=== PATIENT | female | born 1985 | race Caucasian/White ===

== ENCOUNTER 2018-04-15 12:19 | Emergency (ER) | payer SELFPAY ==
[2018-04-15] MEDS ORDERED: Ketorolac Tromethamine 60 MG/2 ML VIAL ONE (14:08)
--- NOTE | 2018-04-15 14:51 | RAD ---
RIGHT SHOULDER 3 VIEWS: Date: 04/15/18 HISTORY: Shoulder pain. FINDINGS: No evidence of fracture or dislocation. AC joint appears normally aligned. IMPRESSION: No acute abnormality identified. POS: [facility]
[2018-04-15] MEDS ORDERED: Diazepam 5 MG TAB ONE (14:52)
== END 2018-04-15 15:00 | disposition home or self-care (01) ==
LOC: SCSER 12:19
DX: M25.511 Pain in right shoulder (principal); F17.210 Nicotine dependence, cigarettes, uncomplicated
CPT/HCPCS: 96372; J1885

== ENCOUNTER 2021-07-22 17:05 | Emergency (ER) | payer MEDICAID, SELFPAY ==
[2021-07-22 19:07] LABS: Pregnancy Test - Urine (BHCG) Negative (Negative); Pregu Control Background? CLEAR/WHITE (CLR/WHITE); Pregu Control Bar Appear? YES (CONTROL BAR); Specific Gravity 1.048 (1.002-1.036)
[2021-07-22] MEDS ORDERED: Dexamethasone 10 MG/ML VIAL ONE (19:11)
[2021-07-22] MEDS ORDERED: Ketorolac Tromethamine 30 MG/ML VIAL ONE (19:11)
== END 2021-07-22 20:00 | disposition home or self-care (01) ==
LOC: ERS 17:05
DX: M54.42 Lumbago with sciatica, left side (principal); F17.210 Nicotine dependence, cigarettes, uncomplicated
CPT/HCPCS: 81025; 96372; 99283; J1100; J1885

== ENCOUNTER 2022-01-18 01:39 | Emergency (ER) | payer MEDICAID, SELFPAY | END 2022-01-18 02:04 | disposition home or self-care (01) | LOC: ERS 01:39 | DX: U07.1 COVID-19 (principal); F17.210 Nicotine dependence, cigarettes, uncomplicated | CPT/HCPCS: 99283; U0003; U0005 ==

== ENCOUNTER 2023-07-22 12:47 | Emergency (ER) | payer OTHER ==
[2023-07-22] MEDS ORDERED: Acetaminophen 500 MG TAB ONE (13:12)
[2023-07-22 14:06] LABS: SARS-CoV-2 NAA Rapid Test Not Detected (NotDetected)
== END 2023-07-22 14:54 | disposition home or self-care (01) ==
LOC: ERS 12:47
DX: O99.511 Diseases of the respiratory system complicating pregnancy, first trimester (principal); J10.1 Influenza due to other identified influenza virus with other respiratory manifestations; Z87.891 Personal history of nicotine dependence; Z3A.12 12 weeks gestation of pregnancy
CPT/HCPCS: 87081; 87430; 99283

== ENCOUNTER 2024-06-10 09:06 | Emergency (ER) | payer OTHER ==
[2024-06-10] MEDS ORDERED: predniSONE 20 MG TAB ONE (11:02)
[2024-06-10] MEDS ORDERED: Morphine 4 MG/ML VIAL ONE (11:09)
== END 2024-06-10 11:27 | disposition home or self-care (01) ==
LOC: ERS 09:06
DX: M54.42 Lumbago with sciatica, left side (principal); Z87.891 Personal history of nicotine dependence
CPT/HCPCS: 96372; 99283; J2272; J7512